=== PATIENT | male | born 2000 | race Caucasian/White ===

== ENCOUNTER 2024-07-23 11:26 | Emergency (ER) | payer OTHER, SELFPAY ==
--- NOTE | ~2024-07-23 | XR_ITS ---
EXAMINATION: XR HAND/WRIST, RIGHT CLINICAL INFORMATION: Pain COMPARISON: None available. TECHNIQUE: PA, lateral, and oblique views of the right hand and wrist. FINDINGS: There are small ossific fragments along the dorsum of the hand at the level of the proximal carpal bones with associated soft tissue swelling. Alignment appears normal. Joint spaces are maintained. XR/XR hand wrist RT IMPRESSION: There are small ossific fragments along the dorsum of the hand at the level of the proximal carpal bones with associated soft tissue swelling. Correlate with clinical exam, cross-sectional imaging can be obtained to better evaluate. Electronically signed by: Eyad Mane MD 07/23/2024 01:11 PM EDT
--- NOTE | ~2024-07-23 | CT_ITS ---
EXAMINATION: CT head/brain wo IV con (accession [id number]) CT facial bones wo IV con (accession [id number]) CLINICAL INFORMATION: pain, left jaw pain COMPARISON: None TECHNIQUE: Separate noncontrast CT examinations of the head and maxillofacial bones were performed. Coronal and sagittal images were created for each examination at the technologist workstation. This CT examination was performed using dose optimization techniques as appropriate, variously including the following: * Automated exposure control * Adjustment of mA and/or kV according to patient size (this includes techniques or standardized protocols for targeted exams where dose is matched to indication/reason for exam; i.e. extremities or head) Use of iterative reconstruction technique DLP: 889 mGy-cm FINDINGS: HEAD: There is no evidence of acute intracranial hemorrhage or territorial infarction. No abnormal mass-effect or midline shift is seen. Sheppard to white matter differentiation is well preserved. No extra-axial fluid collections are identified. No hydrocephalus. No significant volume loss. There is no abnormal attenuation within the brain parenchyma. No acute soft tissue abnormality. No calvarial fracture. The mastoid air cells are well aerated. Large volume partially calcified cerumen in the left external auditory canal. MAXILLOFACIAL: No acute maxillofacial fractures are seen. The mandible, maxilla, pterygoid plates, nasal bones, zygomatic arches, paranasal sinus clemente, and bony orbits are intact. The frontal, maxillary, ethmoid, and sphenoid sinuses are well aerated. The uncinate process is normal bilaterally. The infundibula and middle meati are patent. There is a Side. The mandibular heads are well-seated in the condylar fossa. The orbits demonstrate a normal appearance bilaterally. The globes are intact, and there are no suspicious findings to suggest retrobulbar hemorrhage. CT/CT facial bones wo IV con IMPRESSION: 1. No acute intracranial hemorrhage or territorial infarction. 2. No acute maxillofacial fractures. 3. Large volume partially calcified cerumen in the left external auditory canal. Electronically signed by: Josie Lane DO 07/23/2024 01:55 PM EDT
--- NOTE | ~2024-07-23 | CT_ITS ---
EXAMINATION: CT head/brain wo IV con (accession [id number]) CT facial bones wo IV con (accession [id number]) CLINICAL INFORMATION: pain, left jaw pain COMPARISON: None TECHNIQUE: Separate noncontrast CT examinations of the head and maxillofacial bones were performed. Coronal and sagittal images were created for each examination at the technologist workstation. This CT examination was performed using dose optimization techniques as appropriate, variously including the following: * Automated exposure control * Adjustment of mA and/or kV according to patient size (this includes techniques or standardized protocols for targeted exams where dose is matched to indication/reason for exam; i.e. extremities or head) Use of iterative reconstruction technique DLP: 889 mGy-cm FINDINGS: HEAD: There is no evidence of acute intracranial hemorrhage or territorial infarction. No abnormal mass-effect or midline shift is seen. Sheppard to white matter differentiation is well preserved. No extra-axial fluid collections are identified. No hydrocephalus. No significant volume loss. There is no abnormal attenuation within the brain parenchyma. No acute soft tissue abnormality. No calvarial fracture. The mastoid air cells are well aerated. Large volume partially calcified cerumen in the left external auditory canal. MAXILLOFACIAL: No acute maxillofacial fractures are seen. The mandible, maxilla, pterygoid plates, nasal bones, zygomatic arches, paranasal sinus clemente, and bony orbits are intact. The frontal, maxillary, ethmoid, and sphenoid sinuses are well aerated. The uncinate process is normal bilaterally. The infundibula and middle meati are patent. There is a Side. The mandibular heads are well-seated in the condylar fossa. The orbits demonstrate a normal appearance bilaterally. The globes are intact, and there are no suspicious findings to suggest retrobulbar hemorrhage. CT/CT head/brain wo IV con IMPRESSION: 1. No acute intracranial hemorrhage or territorial infarction. 2. No acute maxillofacial fractures. 3. Large volume partially calcified cerumen in the left external auditory canal. Electronically signed by: Josie Lane DO 07/23/2024 01:55 PM EDT
[2024-07-23 11:35] VITALS: BP 138/78; PULSE 88; RESP 16; TEMP 37; O2SAT 99; BMI 25.6
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
== END 2024-07-23 14:42 | disposition home or self-care (01) ==
LOC: HO.ED 14:40
PROVIDERS: Emergency Provider Emergency Medicine Emergency Medical Services
DX: R68.84 Jaw pain (principal); R51.9 Headache, unspecified; M25.531 Pain in right wrist; M79.641 Pain in right hand
CPT/HCPCS: 70450; 70486; 73110; 73130; 99281; 99284

== ENCOUNTER 2024-08-07 14:04 | Outpatient (REF) | payer OTHER, SELFPAY | END 2024-08-07 14:05 | disposition home or self-care (01) | LOC: HO.HOSX 14:04 | DX: M79.641 Pain in right hand (principal) | CPT/HCPCS: 73110 ==

== ENCOUNTER 2024-08-07 15:40 | Outpatient (AMB) | payer OTHER, SELFPAY ==
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
[2024-08-07 15:56] VITALS: BMI 25.5
== END 2024-08-07 16:11 | disposition home or self-care (01) ==
LOC: HO.HOS 15:40
DX: M67.431 Ganglion, right wrist (principal); M67.432 Ganglion, left wrist
CPT/HCPCS: 99203